=== PATIENT | male | born 1985 | race Caucasian/White ===

== ENCOUNTER 2019-09-25 16:46 | Emergency (ER) | payer BC, OTHER ==
[2019-09-25 17:04] VITALS: BP 124/64; PULSE 94; RESP 18; TEMP 98.2
[2019-09-25] MEDS ORDERED: ACET/COD 300 MG/30 MG STARTER PACK 6 TAB BTL PO STA (17:22)
[2019-09-25] MEDS ORDERED: DIPH,PERTUS(ACELL)TETVAC-LF 0.5 ML VIAL IM ONE (17:22)
[2019-09-25] MEDS ORDERED: KETOROLAC 30 MG/ML 1 ML VIAL IM STA (17:22)
--- NOTE | 2019-09-25 17:38 | ED ---
Upper Extremity HPI - General Chief Complaint: Extremity Injury, Upper Stated Complaint: lac on fingers Time Seen by Provider: 09/25/19 17:17 Source: patient Mode of arrival: ambulatory Limitations: no limitations - History of Present Illness Initial Comments: 34-year-old male patient presents to the emergency department today for evaluation of right hand injury. Patient states around 2:30 this afternoon he was at work working with some cables when his clothes got caught and pinched his second, third, fourth digits on the right hand in the cables. States this caused wounds to the tips of his fingers. States he has been having throbbing pain since the incident is concerned he may have broke his fingers. He is unsure when his last tetanus vaccine was given. Has not taken anything for pain. Denies any other injuries. Patient denies any headache, neck pain, back pain, chest pain, shortness of breath, dizziness, weakness, abdominal pain, na usea, vomiting, or difficulties with bowel movements or urination. - Related Data Previous Rx's Medication Instructions Recorded Ibuprofen [Motrin] 600 mg PO Q8HR PRN #30 tab 09/25/19 Allergies Allergy/AdvReac Type Severity Reaction Status Date / Time No Known Allergies Allergy Verified 09/25/19 17:04 Review of Systems ROS Statement: Those systems with pertinent positive or pertinent negative responses have been documented in the HPI. ROS Other: All systems not noted in ROS Statement are negative. Past Medical History Past Medical History: No Reported History History of Any Multi-Drug Resistant Organisms: None Reported Past Surgical History: No Surgical Hx Reported Past Psychological History: No Psychological Hx Reported Smoking Status: Current every day smoker Past Alcohol Use History: None Reported Past Drug Use History: Marijuana General Exam Limitations: no limitations General appearance: alert, in no apparent distress, other (This is a well- developed, well-nourished adult male patient in no acute distress. Vital signs upon presentation are temperature 98.2F, pulse 94, respirations 18, blood pressure 124/64, pulse ox 99% on room air.) Eye exam: Present: normal appearance, PERRL, EOMI. Absent: scleral icterus, conjunctival injection, periorbital swelling ENT exam: Present: normal exam, normal oropharynx, mucous membranes moist Respiratory exam: Present: normal lung sounds bilaterally. Absent: respiratory distress, wheezes, rales, rhonchi, stridor Cardiovascular Exam: Present: regular rate, normal rhythm, normal heart sounds. Absent: systolic murmur, diastolic murmur, rubs, gallop, clicks Extremities exam: Present: full ROM, tenderness (Distal right 3rd, 4th, and 5th digit.), normal capillary refill, other (There are flap-type lacerations noted to the right third and fourth digit. Hematoma noted to the pad of the right third digit. There is full range of motion. Skin is otherwise pink, warm, dry. Cap refills less than 3 seconds. Radial pulses 2+ and equal bilaterally.). Absent: pedal edema, joint swelling, calf tenderness Neurological exam: Present: alert, oriented X3, CN II-XII intact Psychiatric exam: Present: normal affect, normal mood Skin exam: Present: warm, dry, intact, normal color. Absent: rash Course Vital Signs 09/25/19 09/25/19 17:00 19:20 Temperature 98.2 F 98.2 F Pulse Rate 94 94 Respiratory 18 18 Rate Blood Pressure 124/64 124/64 O2 Sat by Pulse 99 99 Oximetry Medical Decision Making - Medical Decision Making 34-year-old male patient presents to the emergency department for evaluation of injury to the second, third, fourth digits on the right hand. Physical examination did reveal a mild flap laceration to the fourth finger, hematoma to the third finger, and a small abrasion to the second finger. X-rays were negative for any signs of fracture. Wounds were cleansed, bacitracin applied, finger splint applied for protection. He'll be discharged with 2 days off from work. He is instructed to follow-up with his primary care physician or employee health for further evaluation as soon as possible. Wound care and signs of infection were discussed. Return parameters discussed in detail. He verbalizes understanding and agrees with this plan. - Radiology Data Radiology results: report reviewed, image reviewed 3 views of the right hand are obtained. Report is reviewed in its entirety. Impression by Dr. Prieto shows soft tissue injuries to the tips of the second and third digits. No underlying acute osseous abnormalities seen. Disposition Clinical Impression: Crushing injury of finger, Hematoma Disposition: HOME SELF-CARE Condition: Good Instructions (If sedation given, give patient instructions): Hematoma (ED), Crush Injury (ED) Additional Instructions: Keep wounds clean and dry. Keep covered with antibacterial ointment. Use Splints for protection. Follow up with the primary care physician for recheck in 1-2 days. Return to the emergency department immediately for any new, worsening, or concerning symptoms. Prescriptions: Ibuprofen [Motrin] 600 mg PO Q8HR PRN #30 tab PRN Reason: Pain Is patient prescribed a controlled substance at d/c from ED?: No Referrals: Nonstaff,Physician [Primary Care Provider] - 1-2 days Time of Disposition: 18:40
--- NOTE | 2019-09-25 17:57 | XR ---
EXAMINATION TYPE: XR hand complete RT DATE OF EXAM: 09/25/2019 COMPARISON: NONE HISTORY: 34-year-old male injury to right second, third, fourth digits, jamming-type injury with lace rations. TECHNIQUE: 3 views FINDINGS: Soft tissue injuries to the tips of the second and third digits. No underlying acute fracture, sublux ation, or dislocation is seen. No retained radiopaque foreign body identified. IMPRESSION: Soft tissue injuries to the tips of the second and third digits. No underlying acute osseous abnormal ity seen.
== END 2019-09-25 19:20 | disposition home or self-care (01) ==
LOC: EC 16:46
DX: S61.214A Laceration without foreign body of right ring finger without damage to nail, initial encounter (principal); S60.031A Contusion of right middle finger without damage to nail, initial encounter; S60.410A Abrasion of right index finger, initial encounter; F17.200 Nicotine dependence, unspecified, uncomplicated; W45.8XXA Other foreign body or object entering through skin, initial encounter; Y93.89 Activity, other specified; Y92.410 Unspecified street and highway as the place of occurrence of the external cause; Y99.0 Civilian activity done for income or pay; Z23 Encounter for immunization
CPT/HCPCS: 99283; 96372; 90471; 73130; 90715; J1885